=== PATIENT | male | born 1975 | race American Indian/Alaskan Native ===

== ENCOUNTER 2017-12-31 12:31 | Emergency (ER) | payer MEDICAID ==
[2017-12-31 12:33] VITALS: BMI 27.4
[2017-12-31 13:11] VITALS: RESP 18; TEMP 98.5; O2SAT 99
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
--- NOTE | 2017-12-31 13:49 | RAD ---
PROCEDURE: Left Hand Radiographs. HISTORY: trauma COMPARISON: None. FINDINGS: BONES: Old fracture with cortical thickening in the distal ulna JOINTS: Normal. No osteoarthritic changes. SOFT TISSUES: Normal. OTHER FINDINGS: None. IMPRESSION: No acute findings
[2017-12-31 14:04] VITALS: BP 120/60; PULSE 63
== END 2017-12-31 14:03 | disposition home or self-care (01) ==
LOC: ED 12:31
DX: S63.92XA Sprain of unspecified part of left wrist and hand, initial encounter (principal); W06.XXXA Fall from bed, initial encounter; Y92.812 Truck as the place of occurrence of the external cause